=== PATIENT | male | born 1970 | race African-American/Black ===

== ENCOUNTER 2017-05-08 10:31 | Emergency (ER) | payer OTHER ==
[2017-05-08] MEDS ORDERED: Ketorolac 60 MG/2 ML SDV IM ONE (10:40)
[2017-05-08 10:41] VITALS: BP 133/89
--- NOTE | 2017-05-08 10:53 | EDM.PDOC ---
[id number]: BACK PAIN Time Seen by Provider: 05/08/17 10:35 Source of Information: Reports: Patient History Limitations: Reports: No Limitations - History of Present Illness INITIAL COMMENTS - FREE TEXT/NARRATIVE: History of present illness: [46-year-old male comes in status post work-related injury. Patient was trying to break loose up height and had a stabbing pain between his shoulder blades that is now radiating around his flank into his abdomen.] Review of systems: As per history of present illness and below otherwise all systems reviewed and negative. Past medical history: As per history of present illness and as reviewed below otherwise noncontributory. Surgical history: As per history of present illness and as reviewed below otherwise noncontributory. Social history: No reported history of drug or alcohol abuse. Family history: As per history of present illness and as reviewed below otherwise noncontributory. Physical exam: HEENT: Atraumatic, normocephalic, pupils reactive, negative for conjunctival pallor or scleral icterus, mucous membranes moist, throat clear, neck supple, nontender, trachea midline. Lungs: Clear to auscultation, breath sounds equal bilaterally, chest nontender. Heart: S1S2, regular, negative for clicks, rubs, or JVD. Abdomen: Soft, nondistended, nontender. Negative for masses or hepatosplenomegaly. Negative for costovertebral tenderness. Pelvis: Stable nontender. Genitourinary: Deferred. Rectal: Deferred. Extremities: Atraumatic, negative for cords or calf pain. Neurovascular unremarkable. Neuro: Awake, alert, oriented. Cranial nerves II through XII unremarkable. Cerebellum unremarkable. Motor and sensory unremarkable throughout. Exam nonfocal. Diagnostics: [Chest x-ray] Therapeutics: [Toradol, Norflex] Impression: [Back pain] Plan: [OTC medication, muscle relaxers] Definitive disposition and diagnosis as appropriate pending reevaluation and review of above. middle back Pain Score (Numeric/FACES): 9 - Related Data Allergies Allergy/AdvReac Type Severity Reaction Status Date / Time No Known Allergies Allergy Verified 05/08/17 10:32 Home Meds: Home Meds Pantoprazole [Protonix] 40 mg PO DAILY 11/15/15 [History] QUEtiapine [SEROquel] 150 mg PO BEDTIME 11/15/15 [History] sitaGLIPtin Phos/Metformin HCl [Janumet 50-1,000 MG] 0 tab PO BID 05/08/17 [ History] Past Medical History Gastrointestinal History: Reports: GERD Neurological History: Reports: Other (See Below) Other Neuro History: insomnnia Social & Family History - Tobacco Use Smoking Status *Q: Current Every Day Smoker Years of Tobacco use: 20 Packs/Tins Daily: 0.2 - Recreational Drug Use Recreational Drug Use: No ED ROS GENERAL - Review of Systems Review Of Systems: See Below (See history of present illness) ED EXAM, UPPER BACK/NECK PAIN - Physical Exam Exam: See Below (See history of present illness) Course - Vital Signs Last Recorded V/S: Last Vital Signs Temp 36.1 C 05/08/17 10:37 Pulse 78 05/08/17 10:37 Resp 18 05/08/17 10:37 BP 133/89 05/08/17 10:37 Pulse Ox 98 05/08/17 10:37 - Orders/Labs/Meds Meds: Medications Discontinued Medications Generic Name Dose Route Start Last Admin Trade Name Ramesh PRN Reason Stop Dose Admin Ketorolac Tromethamine 60 mg 05/08/17 10:40 05/08/17 11:27 Toradol IM 05/08/17 10:41 60 mg ONETIME ONE Administration Orphenadrine Citrate 60 mg 05/08/17 10:45 05/08/17 11:28 Norflex IM 60 mg Q12H JUNE Administration Departure - Departure Time of Disposition: 11:22 Disposition: Home, Self-Care 01 Condition: Good Clinical Impression: Back pain - Discharge Information Instructions: Back Pain, Adult, [id number] Referrals: PCP,None [Primary Care Provider] - Forms: ED Department Discharge Additional Instructions: The following information is given to patients seen in the emergency department who are being discharged to home. This information is to outline your options for follow-up care. We provide all patients seen in our emergency department with a follow-up referral. The need for follow-up, as well as the timing and circumstances, are variable depending upon the specifics of your emergency department visit. If you don't have a primary care physician on staff, we will provide you with a referral. We always advise you to contact your personal physician following an emergency department visit to inform them of the circumstance of the visit and for follow-up with them and/or the need for any referrals to a consulting specialist. The emergency department will also refer you to a specialist when appropriate. This referral assures that you have the opportunity for follow-up care with a specialist. All of these measure are taken in an effort to provide you with optimal care, which includes your follow-up. Under all circumstances we always encourage you to contact your private physician who remains a resource for coordinating your care. When calling for follow-up care, please make the office aware that this follow-up is from your recent emergency room visit. If for any reason you are refused follow-up, please contact the [facility] Emergency Department at and asked to speak to the emergency department charge nurse. Take medication as instructed Follow-up with PCP in 1-2 days
--- NOTE | 2017-05-08 12:51 | CR ---
EXAMINATION: Two-view chest (PA and Lateral views). HISTORY: Pain. FINDINGS: The trachea is midline. The cardiomediastinal silhouette is within normal limits. Mild left basilar atelectasis no infiltrate. No pleural effusion or no pneumothorax. Osseous structures appear unremarkable. IMPRESSION: Mild left basilar atelectasis and/or infiltrate.
--- NOTE | 2017-05-08 16:54 | CR ---
EXAMINATION: Thoracolumbar spine HISTORY: Pain COMPARISON: None TECHNIQUE: AP and lateral views FINDINGS: There is a trace levocurvature, otherwise The thoracolumbar spinal alignment appears antonio l. The vertebral body heights and disc spaces appear well-maintained. No fracture or dislocation. Mi nimal marginal osteophytes are noted. Bone mineralization is normal. IMPRESSION: Minimal degenerative changes without acute findings.
== END 2017-05-08 12:56 | disposition home or self-care (01) ==
LOC: MW.ED 10:31
DX: M54.6 Pain in thoracic spine (principal); F17.210 Nicotine dependence, cigarettes, uncomplicated; K21.9 Gastro-esophageal reflux disease without esophagitis; Z79.899 Other long term (current) drug therapy
CPT/HCPCS: 71020; 72080; 96372; 99283; J1885; J2360

== ENCOUNTER 2020-01-17 22:16 | Emergency (ER) | payer OTHER ==
[2020-01-17] MEDS ORDERED: cefTRIAXone 1 GM in Sodium Chloride 0.9% 50 ML IV ONE (22:49)
[2020-01-17] MEDS ORDERED: Sodium Chloride 0.9% 1,000 ML IV ONE (22:49)
[2020-01-17] MEDS ORDERED: cefTRIAXone 1 GM in Premix Bag 1 BAG IV ONE (22:59)
[2020-01-17 23:39] LABS: BLOOD UREA NITROGEN,BUN 14 mg/dL (7.0-18.0); CARBON DIOXIDE,CO2 23.4 mmol/L (21.0-32.0); CHLORIDE,CL 99 mmol/L (98-107); GLUCOSE RANDOM 313 mg/dL (74-106); POTASSIUM,K 3.5 mmol/L (3.5-5.1); SODIUM,NA 133 mmol/L (136-148)
--- NOTE | 2020-01-18 00:33 | US ---
INDICATION: Pain and swelling TECHNIQUE: Ultrasound of the scrotum and contents. Sonographic murillo scale images were obtained with spectral and color Doppler waveform and spectral waveform analysis of the testicles. COMPARISON: None FINDINGS: Right testicle: 5.4 centimeter x 3.7 centimeter x 2.8 centimeter. Normal echotexture. No masses. No suspicious calcifications. Normal arterial and venous and blood flow using Doppler and spectral waveform analysis. Left testicle: 1 3 centimeter x 2.4 centimeter x 3.4 centimeter. Normal echotexture. No masses. No suspicious calcifications. Normal arterial and venous and blood flow using Doppler and spectral waveform analysis. Epididymis: Enlarged hyperemic right epididymis.. Other: Bilateral large hydroceles. Left-sided varicocele. Scrotal wall is normal. IMPRESSION: Enlarged hyperemic right epididymis consistent with epididymitis. Bilateral large hydroceles. Left-sided varicocele. Dictated by Ravinder Storey MD @ 01/18/2020 12:32:00 AM Dictated by: Ravinder Storey MD @ 01/18/2020 00:32:07 (Electronically Signed)
--- NOTE | 2020-01-18 00:59 | EDM.PDOC ---
ED HPI GENERAL MEDICAL PROBLEM - General Chief Complaint: Genitourinary Problem Stated Complaint: TESTICULAR PAIN Time Seen by Provider: 01/17/20 22:20 Source of Information: Reports: Patient History Limitations: Reports: No Limitations - History of Present Illness INITIAL COMMENTS - FREE TEXT/NARRATIVE: This is a 49-year-old male who presents the emergency room with a chief complaint of swelling to his right testicles and pain. Patient states that he has had swelling and pain for the past couple days. Patient has a history of diabetes and no allergies Onset: Today Duration: Day(s): (5), Getting Worse Location: Reports: Other (Bilateral testicles) Quality: Reports: Ache Severity: Moderate Improves with: Reports: None Worsens with: Reports: None Associated Symptoms: Reports: No Other Symptoms groin Pain Score (Numeric/FACES): 10 - Related Data Allergies Allergy/AdvReac Type Severity Reaction Status Date / Time No Known Allergies Allergy Verified 05/08/17 10:32 Home Meds: Home Meds QUEtiapine [SEROquel] 150 mg PO BEDTIME 11/15/15 [History] Past Medical History - Past Health History Medical/Surgical History: Denies Medical/Surgical History HEENT History: Reports: Impaired Vision Gastrointestinal History: Reports: GERD Neurological History: Reports: Other (See Below) Other Neuro History: insomnnia Psychiatric History: Reports: Anxiety Endocrine/Metabolic History: Reports: Diabetes, Type II Social & Family History - Family History Family Medical History: Noncontributory - Tobacco Use Smoking Status *Q: Current Every Day Smoker Years of Tobacco use: 10 Packs/Tins Daily: 0.5 - Recreational Drug Use Recreational Drug Use: No ED ROS GENERAL - Review of Systems Review Of Systems: See Below Constitutional: Reports: No Symptoms HEENT: Reports: No Symptoms Respiratory: Reports: No Symptoms Cardiovascular: Reports: No Symptoms Endocrine: Reports: No Symptoms GI/Abdominal: Reports: No Symptoms : Reports: Pain (Testicular pain) Skin: Reports: No Symptoms Neurological: Reports: No Symptoms Psychiatric: Reports: No Symptoms Immunologic: Reports: No Symptoms ED EXAM, RENAL/ - Physical Exam Exam: See Below Exam Limited By: No Limitations General Appearance: Alert, WD/WN, No Apparent Distress Eye Exam: Bilateral Eye: Normal Fundi, Normal Inspection Ears: Normal External Exam Nose: Normal Inspection Throat/Mouth: Normal Inspection Head: Atraumatic, Normocephalic Neck: Normal Inspection Respiratory/Chest: No Respiratory Distress, Lungs Clear Cardiovascular: Normal Peripheral Pulses GI/Abdominal: Normal Bowel Sounds (Male) Exam: Scrotum Tenderness (L), Scrotum Tenderness (R), Testicular Tenderness (R) Rectal (Males) Exam: Deferred Back Exam: Normal Inspection, Full Range of Motion Extremities: Normal Inspection, Normal Range of Motion Neurological: Alert, Oriented, CN II-XII Intact Psychiatric: Normal Affect, Normal Mood Skin Exam: Warm, Dry, Intact Lymphatic: No Adenopathy Course - Vital Signs Text/Narrative:: 49-year-old male presents the emergency room with a testicular pain. Patient had an ultrasound which shows patient has pneumonitis and also. No signs of testicular torsion. Is received a gram of Rocephin. Patient will be discharged home with antibiotics scrotal support and follow-up with the primary care physician. Last Recorded V/S: Last Vital Signs Temp 97.8 F 01/17/20 22:28 Pulse 112 H 01/17/20 22:28 Resp 20 01/17/20 22:28 BP 119/89 01/17/20 22:28 Pulse Ox 97 01/17/20 22:28 - Orders/Labs/Meds Labs: Laboratory Tests 01/17/20 01/17/20 01/17/20 Range/Units 23:03 23:03 23:03 WBC 12.42 H (4.0-11.0) K/uL RBC 4.69 (4.50-5.90) M/uL Hgb 14.0 (13.0-17.0) g/dL Hct 40.8 (38.0-50.0) % MCV 87.0 (80.0-98.0) fL MCH 29.9 (27.0-32.0) pg MCHC 34.3 (31.0-37.0) g/dL RDW Std Deviation 40.9 (28.0-62.0) fl RDW Coeff of Esdras 13 (11.0-15.0) % Plt Count 224 (150-400) K/uL MPV 10.50 (7.40-12.00) fL Neut % (Auto) 76.2 (48.0-80.0) % Lymph % (Auto) 14.3 L (16.0-40.0) % [place] % (Auto) 8.6 (0.0-15.0) % Eos % (Auto) 0.8 (0.0-7.0) % Baso % (Auto) 0.1 (0.0-1.5) % Neut # (Auto) 9.5 H (1.4-5.7) K/uL Lymph # (Auto) 1.8 (0.6-2.4) K/uL [place] # (Auto) 1.1 H (0.0-0.8) K/uL Eos # (Auto) 0.1 (0.0-0.7) K/uL Baso # (Auto) 0.0 (0.0-0.1) K/uL Nucleated RBC % 0.0 /100WBC Nucleated RBCs # 0 K/uL Lactate 1.4 (0.20-2.00) mmol/L Sodium 133 L (136-148) mmol/L Potassium 3.5 (3.5-5.1) mmol/L Chloride 99 (98-107) mmol/L Carbon Dioxide 23.4 (21.0-32.0) mmol/L BUN 14 (7.0-18.0) mg/dL Creatinine 1.2 (0.8-1.3) mg/dL Est Cr Clr Drug Dosing 76.04 mL/min Estimated GFR (MDRD) > 60.0 ml/min Glucose 313 H (74-106) mg/dL Calcium 9.1 (8.5-10.1) mg/dL Total Bilirubin 0.5 (0.2-1.0) mg/dL AST 10 L (15-37) IU/L ALT 26 (14-63) IU/L Alkaline Phosphatase 85 (46-116) U/L Total Protein 7.5 (6.4-8.2) g/dL Albumin 3.9 (3.4-5.0) g/dL Globulin 3.6 (2.6-4.0) g/dL Albumin/Globulin Ratio 1.1 (0.9-1.6) Meds: Medications Discontinued Medications Generic Name Dose Route Start Last Admin Trade Name Freq PRN Reason Stop Dose Admin Ceftriaxone Sodium 1 gm/ 50 mls @ 200 mls/hr 01/17/20 22:49 01/17/20 23:21 Sodium Chloride IV 01/17/20 23:03 Not Given ONETIME ONE Sodium Chloride 1,000 mls @ 1,000 mls/hr 01/17/20 22:49 01/17/20 23:10 Normal Saline IV 01/17/20 23:48 1,000 mls/hr .Bolus ONE Administration Ceftriaxone Sodium/Dextrose 1 50 mls @ 100 mls/hr 01/17/20 22:59 01/17/20 23: 21 gm/ Premix IV 01/17/20 23:28 100 mls/hr ONETIME ONE Administration Departure - Departure Time of Disposition: 01:03 Disposition: Home, Self-Care 01 Clinical Impression: Epididymitis, bilateral, Epididymitis - Discharge Information Referrals: Zeb Stanley MD [Primary Care Provider] - Additional Instructions: Patient should use scrotal support. Patient should take his antibiotics as prescribed III. Follow-up with your primary care physician within 3 to 4 days Sepsis Event Note - Evaluation Sepsis Screening Result: No Definite Risk - Focused Exam Vital Signs: Vital Signs Temp Pulse Resp BP Pulse Ox 01/17/20 22:28 97.8 F 112 H 20 119/89 97 Date Exam was Performed: 01/18/20 Time Exam was Performed: 00:54
[2020-01-18] MEDS ORDERED: Ketorolac 30 MG/ML SDV IVPUSH ONE (01:05)
[2020-01-18] MEDS ORDERED: Ibuprofen 600 MG Tab PO SCH (01:15)
[2020-01-18 01:28] VITALS: BP 127/81; PULSE 85
--- NOTE | 2020-01-18 12:13 | US ---
INDICATION: Pain and swelling TECHNIQUE: Ultrasound of the scrotum and contents. Sonographic murillo scale images were obtained with spectral and color Doppler waveform and spectral waveform analysis of the testicles. COMPARISON: None FINDINGS: Right testicle: 5.4 centimeter x 3.7 centimeter x 2.8 centimeter. Normal echotexture. No masses. No suspicious calcifications. Normal arterial and venous and blood flow using Doppler and spectral waveform analysis. Left testicle: 1 3 centimeter x 2.4 centimeter x 3.4 centimeter. Normal echotexture. No masses. No suspicious calcifications. Normal arterial and venous and blood flow using Doppler and spectral waveform analysis. Epididymis: Enlarged hyperemic right epididymis.. Other: Bilateral large hydroceles. Left-sided varicocele. Scrotal wall is normal. IMPRESSION: Enlarged hyperemic right epididymis consistent with epididymitis. Bilateral large hydroceles. Left-sided varicocele. MTDD
== END 2020-01-18 01:46 | disposition home or self-care (01) ==
LOC: MW.ED 22:16
DX: N45.1 Epididymitis (principal); E11.9 Type 2 diabetes mellitus without complications; F41.9 Anxiety disorder, unspecified; F17.210 Nicotine dependence, cigarettes, uncomplicated
CPT/HCPCS: 36415; 76870; 80053; 83605; 85025; 93976; 96365; 99284; J0696; J1885; J7030